=== PATIENT | female | born 1985 | race Caucasian/White ===

== ENCOUNTER 2018-06-21 21:22 | Outpatient (CLI) | payer MEDICAID ==
[2018-06-21 22:24] LABS: ADD UMIC YES; UR ASCORBIC ACID NEGATIVE (NEGATIVE); UR BACTERIA FEW /HPF (NONE SEEN); UR BILIRUBIN (Dip) NEGATIVE (NEGATIVE); UR BLOOD (Dip) 3+ mg/dL (NEGATIVE); UR CLARITY CLOUDY (CLEAR); UR COLOR RED (YELLOW); UR GLUCOSE (Dip) NEGATIVE (NEGATIVE); UR KETONES (Dip) NEGATIVE (NEGATIVE); UR LEUKOCYTE ESTERASE (Dip) 1+ Leu/ul (NEGATIVE); UR MUCUS FEW /HPF (NONE SEEN); UR NITRITE (Dip) NEGATIVE (NEGATIVE); UR RBC > 182 /HPF (0-5); UR SPECIFIC GRAVITY (Dip) 1.013 (1.003-1.030); UR SQUAMOUS EPITHELIAL CELL FEW /HPF (FEW); UR TOTAL PROTEIN (Dip) 2+ mg/dl (NEGATIVE); UR UROBILINOGEN (Dip) NEGATIVE (NEGATIVE); UR WBC > 182 /HPF (0-5)
[2018-06-21 22:25] LABS: ADD MAN DIFF? NO
[2018-06-21 22:26] LABS: WHITE BLOOD COUNT 11.9 10^3/ul (4.8-10.8)
[2018-06-21 22:26] LABS: BASOPHILS % 0.3 % (0.0-2.0); EOSINOPHILS # 0.1 10^3/ul (0.0-0.5); EOSINOPHILS % 0.9 % (0.0-7.0); HEMATOCRIT 34.3 % (37.0-47.0); HEMOGLOBIN 11.3 g/dl (12.0-16.0); LYMPHOCYTES # 2.2 10^3/ul (0.8-2.9); LYMPHOCYTES % 18.8 % (15.0-51.0); MEAN CORPUSCULAR HEMOGLOBIN 29.7 pg (29.0-33.0); MEAN CORPUSCULAR HGB CONC 32.9 g/dl (32.0-37.0); MEAN PLATELET VOLUME 9.5 fl (7.4-10.4); MONOCYTE # 0.8 10^3/ul (0.3-0.9); MONOCYTES % 6.6 % (0.0-11.0); NEUTROPHIL # 8.5 10^3/ul (1.6-7.5); NEUTROPHILS % 71.6 % (39.0-77.0); PLATELET COUNT 228 10^3/UL (140-415); RED BLOOD COUNT 3.81 10^6/ul (4.20-5.40)
== END 2018-06-22 | disposition home or self-care (01) ==
LOC: OBT 21:22 → L-D 21:23
DX: O46.8X3 Other antepartum hemorrhage, third trimester (principal); Z3A.33 33 weeks gestation of pregnancy
CPT/HCPCS: 76815; 76817; 76818; 81001; 85025; 87086

== ENCOUNTER 2018-06-29 15:25 | Inpatient (IN) | payer MEDICAID ==
[2018-06-29 17:14] LABS: ADD MAN DIFF? NO
[2018-06-29 17:16] LABS: WHITE BLOOD COUNT 12.2 10^3/ul (4.8-10.8)
[2018-06-29 17:16] LABS: BASOPHILS % 0.2 % (0.0-2.0); EOSINOPHILS # 0.1 10^3/ul (0.0-0.5); EOSINOPHILS % 0.7 % (0.0-7.0); HEMATOCRIT 33.8 % (37.0-47.0); HEMOGLOBIN 11.2 g/dl (12.0-16.0); LYMPHOCYTES # 2.1 10^3/ul (0.8-2.9); LYMPHOCYTES % 17.2 % (15.0-51.0); MEAN CORPUSCULAR HEMOGLOBIN 29.9 pg (29.0-33.0); MEAN CORPUSCULAR HGB CONC 33.1 g/dl (32.0-37.0); MEAN CORPUSCULAR VOLUME 90.1 fl (82.0-101.0); MEAN PLATELET VOLUME 9.7 fl (7.4-10.4); MONOCYTE # 0.7 10^3/ul (0.3-0.9); NEUTROPHIL # 9.2 10^3/ul (1.6-7.5); NEUTROPHILS % 74.8 % (39.0-77.0); PLATELET COUNT 237 10^3/UL (140-415); RED BLOOD COUNT 3.75 10^6/ul (4.20-5.40); RED CELL DISTRIBUTION WIDTH 16.6 % (11.5-14.5)
[2018-06-29 17:34] LABS: INR 1.03; PROTIME 13.6 Sec (11.9-14.9); PT RATIO 1.1
[2018-06-29 17:35] LABS: PARTIAL THROMBOPLASTIN TIME 30.9 Sec (23.0-35.0)
[2018-06-29 20:17] LABS: RAPID PLASMA REAGIN NONREACTIVE (NR)
== END 2018-06-30 10:30 | disposition home or self-care (01) | DRG 833 ==
LOC: OBT 15:25 → L-D 15:26 → OBT 15:50 → L-D 15:50
PROVIDERS: Obstetrics & Gynecology
DX: O46.93 Antepartum hemorrhage, unspecified, third trimester (principal); Z3A.35 35 weeks gestation of pregnancy; O34.219 Maternal care for unspecified type scar from previous cesarean delivery
CPT/HCPCS: 76815; 76818; 85025; 85610; 85730; 86592; 86850; 86900; 86901

== ENCOUNTER 2018-07-28 07:27 | Inpatient (IN) | payer MEDICAID ==
[~2018-07-28 07:27] MED LIST: OXYTOCIN 30 UNITS/LR 500 ML BAG IV
[2018-07-28] MEDS ORDERED: MISOPROSTOL 200 MCG TAB PR ×2 (08:00→13:00)
[2018-07-28] MEDS ORDERED: OXYTOCIN 30 UNITS/LR 500 ML IV ×2 (08:00→13:00)
[2018-07-28] MEDS ORDERED: METHYLERGONOVINE 0.2 MG INJ IM ×2 (08:00→13:00)
[2018-07-28] MEDS: LACTATED RINGER'S 1,000 ML IV ×2 (08:00→12:22)
[2018-07-28] MEDS ORDERED: CARBOPROST 250 MCG INJ IM ×2 (08:00→13:00)
[2018-07-28 08:20] LABS: ADD MAN DIFF? NO
[2018-07-28 08:35] LABS: WHITE BLOOD COUNT 9.9 10^3/ul (4.8-10.8)
[2018-07-28 08:35] LABS: BASOPHILS % 0.3 % (0.0-2.0); EOSINOPHILS # 0.1 10^3/ul (0.0-0.5); EOSINOPHILS % 0.6 % (0.0-7.0); HEMATOCRIT 37.8 % (37.0-47.0); HEMOGLOBIN 12.3 g/dl (12.0-16.0); LYMPHOCYTES # 1.9 10^3/ul (0.8-2.9); LYMPHOCYTES % 19.1 % (15.0-51.0); MEAN CORPUSCULAR HEMOGLOBIN 28.7 pg (29.0-33.0); MEAN CORPUSCULAR HGB CONC 32.5 g/dl (32.0-37.0); MEAN CORPUSCULAR VOLUME 88.3 fl (82.0-101.0); MEAN PLATELET VOLUME 10.3 fl (7.4-10.4); MONOCYTE # 0.8 10^3/ul (0.3-0.9); MONOCYTES % 8.2 % (0.0-11.0); NEUTROPHILS % 70.8 % (39.0-77.0); PLATELET COUNT 249 10^3/UL (140-415); RED BLOOD COUNT 4.28 10^6/ul (4.20-5.40); RED CELL DISTRIBUTION WIDTH 14.9 % (11.5-14.5)
[2018-07-28 08:48] LABS: INR 0.97
[2018-07-28 08:49] LABS: PARTIAL THROMBOPLASTIN TIME 30.9 Sec (23.0-35.0)
[2018-07-28] MEDS: ONDANSETRON 4 MG INJ IV (09:04)
[2018-07-28] MEDS: CITRIC ACID/NA CITRATE 30 ML CUP PO (09:04)
[2018-07-28] MEDS ORDERED: PHENYLephrine (100 MCG/ML) 5ML SYG ×2 (09:36→10:19)
[2018-07-28] MEDS ORDERED: OXYTOCIN 10 UNIT INJ (09:36)
[2018-07-28] MEDS ORDERED: morphine SULFATE/PF (10 MG/10 ML) INJ (09:36)
[2018-07-28] MEDS ORDERED: KETOROLAC 30 MG INJ (10:10)
[2018-07-28] MEDS ORDERED: DEXAMETHASONE 4 MG/ML 1 ML INJ (10:10)
[2018-07-28] MEDS ORDERED: METOCLOPRAMIDE 10 MG INJ (10:10)
[2018-07-28 10:51] LABS: HEPATITIS B SURFACE ANTIGEN NEGATIVE (NEGATIVE)
[2018-07-28] MEDS ORDERED: NALOXONE (0.4 MG/ML) INJ IV (11:00)
[2018-07-28] MEDS ORDERED: HYDROmorphONE 0.5 MG/0.5 ML SYG IV ×2 (11:00)
[2018-07-28] MEDS ORDERED: ONDANSETRON 4 MG INJ IV (11:00)
[2018-07-28] MEDS ORDERED: KETOROLAC 30 MG INJ IV (11:00)
[2018-07-28] MEDS ORDERED: morphine 2 MG INJ IV ×2 (11:00)
[2018-07-28] MEDS ORDERED: ACETAMINOPHEN 500 MG TAB PO (11:00)
[2018-07-28] MEDS ORDERED: HYDROCODONE/APAP (5/325) TAB PO ×3 (11:00→13:00)
[2018-07-28] MEDS ORDERED: NALBUPHINE HCL (10 MG/1 ML) INJ IV (11:00)
[2018-07-28] MEDS ORDERED: DIPHENHYDRAMINE 50 MG INJ IV (11:00)
[2018-07-28] MEDS: CEFAZOLIN 2 GM/50 ML (PMX) 50 ML IVPB (11:23)
[2018-07-28] MEDS: OXYTOCIN 30 UNITS/LR 500 ML IV ×2 (11:34→15:37)
[2018-07-28] MEDS ORDERED: ALBUMIN HUMAN 5% 250 ML IV (12:30)
[2018-07-28] MEDS ORDERED: EPHEDrine SULFATE 50 MG/5 ML SYG IV (12:30)
[2018-07-28] MEDS ORDERED: DEXTROSE 5%-LR 1,000 ML IV (12:51)
[2018-07-28] MEDS ORDERED: LANOLIN 7 GM TUBE TOP (13:00)
[2018-07-28] MEDS ORDERED: METHYLERGONOVINE 0.2 MG TAB PO (13:00)
[2018-07-28] MEDS ORDERED: IBUPROFEN 800 MG TAB PO (14:00)
[2018-07-28 22:01] LABS: RAPID PLASMA REAGIN NONREACTIVE (NR)
[2018-07-29] MEDS: LACTATED RINGER'S 1,000 ML IV (00:55)
[2018-07-29 08:22] LABS: ADD MAN DIFF? NO
[2018-07-29 08:30] LABS: WHITE BLOOD COUNT 10.6 10^3/ul (4.8-10.8)
[2018-07-29 08:30] LABS: BASOPHILS % 0.2 % (0.0-2.0); EOSINOPHILS # 0.1 10^3/ul (0.0-0.5); EOSINOPHILS % 0.5 % (0.0-7.0); HEMATOCRIT 31.8 % (37.0-47.0); HEMOGLOBIN 10.5 g/dl (12.0-16.0); LYMPHOCYTES # 1.9 10^3/ul (0.8-2.9); LYMPHOCYTES % 18.1 % (15.0-51.0); MEAN CORPUSCULAR HEMOGLOBIN 29.1 pg (29.0-33.0); MEAN CORPUSCULAR VOLUME 88.1 fl (82.0-101.0); MEAN PLATELET VOLUME 10.3 fl (7.4-10.4); MONOCYTE # 0.8 10^3/ul (0.3-0.9); MONOCYTES % 7.7 % (0.0-11.0); NEUTROPHIL # 7.7 10^3/ul (1.6-7.5); NEUTROPHILS % 72.7 % (39.0-77.0); PLATELET COUNT 235 10^3/UL (140-415); RED BLOOD COUNT 3.61 10^6/ul (4.20-5.40); RED CELL DISTRIBUTION WIDTH 14.7 % (11.5-14.5)
[2018-07-29] MEDS: SENNA/DOCUSATE NA (8.6MG/50MG) TAB PO ×2 (10:02→21:32)
[2018-07-29] MEDS: OXYCODONE/ACETAMINOPHEN (5/325) TAB PO ×2 (10:03→18:03)
[2018-07-29] MEDS ORDERED: HYDROCODONE/APAP (5/325) TAB NGT (11:00)
[2018-07-29] MEDS ORDERED: DIPHTH/TET/ACEL PERTUSS (ADULT) 0.5 ML VIAL IM* (11:00)
[2018-07-29] MEDS: IBUPROFEN 800 MG TAB PO ×2 (13:41→21:33)
[2018-07-29] MEDS ORDERED: HYDROCODONE/APAP (5/325) TAB GTB (14:00)
[2018-07-29] MEDS: GUAIFENESIN/DM 5ML CUP PO (18:03)
[2018-07-29] MEDS: MAGNESIUM HYDROXIDE 30ML CUP PO (18:03)
[2018-07-30] MEDS: IBUPROFEN 800 MG TAB PO ×3 (06:41→21:29)
[2018-07-30] MEDS: GUAIFENESIN/DM 5ML CUP PO ×2 (06:45→21:39)
[2018-07-30] MEDS: SENNA/DOCUSATE NA (8.6MG/50MG) TAB PO ×2 (08:31→21:00)
[2018-07-30] MEDS: OXYCODONE/ACETAMINOPHEN (5/325) TAB PO ×3 (08:31→22:03)
[2018-07-30] MEDS: MAGNESIUM HYDROXIDE 30ML CUP PO (17:50)
[2018-07-31] MEDS: OXYCODONE/ACETAMINOPHEN (5/325) TAB PO ×2 (04:16→15:11)
[2018-07-31] MEDS: IBUPROFEN 800 MG TAB PO ×2 (06:33→14:05)
[2018-07-31] MEDS: SENNA/DOCUSATE NA (8.6MG/50MG) TAB PO (09:00)
[2018-07-31] MEDS: DIPHTH/TET/ACEL PERTUSS (ADULT) 0.5 ML VIAL IM* (09:56)
[2018-07-31] MEDS: MEASLES,MUMPS,RUBELLA VACCINE INJ SC* (09:56)
== END 2018-07-31 18:01 | disposition home or self-care (01) | DRG 788 ==
LOC: L-D 07:27 → PP1 13:05
PROVIDERS: Obstetrics & Gynecology
PROC: 10D00Z1 Extraction of Products of Conception, Low, Open Approach (ICD-10-PCS; principal; 2018-07-28 09:00)
DX: O34.219 Maternal care for unspecified type scar from previous cesarean delivery (principal); O99.214 Obesity complicating childbirth; E66.9 Obesity, unspecified; T49.0X1A Poisoning by local antifungal, anti-infective and anti-inflammatory drugs, accidental (unintentional), initial encounter; Y92.230 Patient room in hospital as the place of occurrence of the external cause; Z3A.39 39 weeks gestation of pregnancy; Z37.0 Single live birth; Z86.59 Personal history of other mental and behavioral disorders
CPT/HCPCS: 85025; 85610; 85730; 86592; 86850; 86900; 86901; 87340; 99464